=== PATIENT | female | born 1935 | race Caucasian/White ===

== ENCOUNTER 2025-01-28 19:10 | Inpatient (IN) | payer MEDICARE, OTHER ==
[~2025-01-28] VITALS: Ht 160 cm; Wt 59.9 kg
[2025-01-28 20:13] LABS: BASOPHILS # (AUTO) 0.1 K/UL (0.0-0.2); BASOPHILS % (AUTO) 0.7 % (0.0-2.0); EOSINOPHILS # (AUTO) 0.1 K/uL (0.0-0.7); EOSINOPHILS % (AUTO) 0.7 % (0.0-7.0); HEMATOCRIT 33.2 % (31.2-41.9); HEMOGLOBIN 11.5 g/dL (10.9-14.3); LYMPHOCYTES # (AUTO) 2.6 K/uL (0.8-4.8); LYMPHOCYTES % (AUTO) 20.3 % (20.5-51.5); MEAN CORPUSCULAR HEMOGLOBIN 31.7 uug (24.7-32.8); MEAN CORPUSCULAR HGB CONC 35 g/dL (32.3-35.6); MEAN CORPUSCULAR VOLUME 91.4 fL (75.5-95.3); MONOCYTES # (AUTO) 1.1 K/uL (0.1-1.30); NEUTROPHILS # (AUTO) 8.8 K/uL (1.8-8.9); NEUTROPHILS % (AUTO) 69.3 % (38.5-71.5); PLATELET COUNT (AUTO) 275 K/uL (179-408); RED BLOOD CELL COUNT(AUTO) 3.63 MIL/uL (3.63-4.92); RED CELL DISTRIBUTION WIDTH 14.2 % (12.3-17.7); WHITE BLOOD COUNT (AUTO) 12.7 K/uL (3.8-11.8)
[2025-01-28 20:14] LABS: *BILIRUBIN,URIN NEGATIVE (NEGATIVE); *CLARITY,URINE CLOUDY (CLEAR); *COLOR,URINE YELLOW (YELLOW); *KETONES,URINE NEGATIVE (NEGATIVE); *PROTEIN,URINE 2+ (NEGATIVE); *UROBILINOGEN,URINE 0.2 E.U./dl (NORMAL); LEUKOCYTE ESTERASE ,URINE 1+ (NEGATIVE); NITRITE, URINE NEGATIVE (NEGATIVE); PH,URINE 7.5 (5.0-8.0); UGLUCOSE NEGATIVE (NEGATIVE)
[2025-01-28 20:15] LABS: *BLOOD, URINE TRACE (NEGATIVE)
[2025-01-28 20:15] LABS: DIFFERENTIAL COMMENT 1
[2025-01-28 20:20] LABS: CALCIUM 8.9 mg/dL (8.5-10.1); CARBON DIOXIDE 27 mmol/L (21-32); CHLORIDE 101 mmol/L (98-107); CREATININE 0.6 mg/dL (0.6-1.3); GLUCOSE 121 mg/dL (74-106); POTASSIUM 3.8 mmol/L (3.5-5.1); SODIUM SERUM 138 mmol/L (136-145); UREA NITROGEN, BLOOD 21 mg/dL (7-18)
[2025-01-28] MEDS ORDERED: TIMO5DRO18 RIGHTEYE (20:20)
[2025-01-28] MEDS ORDERED: ESCI10TA PO (20:20)
[2025-01-28] MEDS ORDERED: BISA10SU61 RC (20:20)
[2025-01-28] MEDS ORDERED: ALEN70TA80 PO (20:20)
[2025-01-28] MEDS ORDERED: ASCO500C18 PO (20:20)
[2025-01-28] MEDS ORDERED: CLOP75TA33 PO (20:20)
[2025-01-28] MEDS ORDERED: IBUP-1953 PO (20:20)
[2025-01-28] MEDS ORDERED: PHEN50TA PO (20:20)
[2025-01-28] MEDS ORDERED: MAGN400O6 PO (20:20)
[2025-01-28] MEDS ORDERED: BRIM5DRO5 OP (20:20)
[2025-01-28] MEDS ORDERED: IBUP-2314 PO (20:20)
[2025-01-28] MEDS ORDERED: LACT10SO58 PO (20:20)
[2025-01-28] MEDS ORDERED: PHEN200C5 PO (20:20)
[2025-01-28] MEDS ORDERED: RIFA550T PO (20:20)
[2025-01-28] MEDS ORDERED: CYCL5TAB PO (20:20)
[2025-01-28] MEDS ORDERED: NA P133E RC (20:20)
[2025-01-28] MEDS ORDERED: CALC500T52 PO (20:20)
[2025-01-28] MEDS ORDERED: LATA7.5D OP (20:20)
[2025-01-28] MEDS ORDERED: DORZ10DR18 OP (20:20)
[2025-01-28] MEDS ORDERED: ACET-73 PO (20:20)
[2025-01-28] MEDS ORDERED: GABA300C PO (20:20)
[2025-01-28] MEDS ORDERED: CHOL10005 PO (20:20)
[2025-01-28] MEDS ORDERED: LEVE500T83 PO ×2 (20:20)
[2025-01-28] MEDS ORDERED: ACET-3117 PO (20:20)
[2025-01-28 20:22] LABS: *AMPHETAMINE, URINE NEGATIVE (NEGATIVE); *BARBITURATE, URINE NEGATIVE (NEGATIVE); *BENZODIAZEPINE, URINE NEGATIVE (NEGATIVE); *CANNABINOID, URINE NEGATIVE (NEGATIVE); *COCCAINE, URINE NEGATIVE (NEGATIVE); *OPIATE, URINE NEGATIVE (NEGATIVE); *PHENCYCLIDINE SCREEN,URINE NEGATIVE (NEGATIVE); FENTANYL, URINE NEGATIVE (NEGATIVE)
[2025-01-28 20:25] LABS: ALANINE AMINOTRANSFERASE 35 U/L (14-59); ALBUMIN 3.4 g/dL (3.4-5.0); ALKALINE PHOSPHATASE 118 U/L (50-136); ASPARTATE AMINOTRANSFERASE 31 U/L (15-37); BILIRUBIN,DIRECT 0.1 mg/dL (0.0-0.2); BILIRUBIN,TOTAL 0.3 mg/dL (0.2-1.0); ETHANOL < 3 MG/DL (0-10); TOTAL PROTEIN, SERUM 7.4 g/dL (6.4-8.2)
[2025-01-28 20:33] LABS: BACTERIA,URINE MANY /HPF (NONE SEEN); MUCUS,URINE MANY /LPF (0-FEW); RBC,URINE 0-3 /HPF (0-3); SQUAMOUS EPITHELIAL CELL,UR MODERATE /HPF (NONE SEEN); TRIPLE PHOSPHATE CRYSTAL,UR MANY /HPF (NONE SEEN)
[2025-01-28] MEDS: NITROFURANTOIN/NITROFURAN MAC 100 MG CAPSULE PO ONE (21:47)
[2025-01-28] MEDS: ACETAMINOPHEN 500 MG TABLET PO ONE (21:47)
[2025-01-28] MEDS: LORAZEPAM 0.5 MG TABLET PO ONE (21:47)
[2025-01-29] MEDS ORDERED: DORZOLAMIDE HCL OP SCH (09:00)
[2025-01-29] MEDS: CLOPIDOGREL 75 MG TABLET PO SCH (10:00)
[2025-01-29] MEDS: levETIRAcetam 250 MG TABLET PO SCH (10:00)
[2025-01-29] MEDS: CALCIUM CARBONATE 500 MG TABLET PO SCH (10:00)
[2025-01-29] MEDS: NITROFURANTOIN/NITROFURAN MAC 100 MG CAPSULE PO SCH (10:00)
[2025-01-29] MEDS: RIFAXIMIN 550 MG TABLET PO SCH (10:00)
[2025-01-29] MEDS: GABAPENTIN 300 MG CAPSULE PO SCH (10:00)
[2025-01-29] MEDS: CHOLECALCIFEROL 1,000 UNIT TABLET PO SCH (10:00)
[2025-01-29] MEDS: ASCORBIC ACID 500 MG TABLET PO SCH (10:00)
[2025-01-29] MEDS: LACTULOSE 20 G/30 ML LIQUID UDC PO SCH (10:30)
[2025-01-29] MEDS: TIMOLOL MALEATE 0.5% OPHT DROP 5 ML BOTTLE RIGHTEYE SCH (10:51)
[2025-01-29] MEDS ORDERED: CLOPIDOGREL 75 MG TABLET ONE (10:58)
[2025-01-29] MEDS ORDERED: levETIRAcetam 250 MG TABLET ONE (10:58)
[2025-01-29] MEDS ORDERED: NITROFURANTOIN/NITROFURAN MAC 100 MG CAPSULE PO ONE (10:58)
[2025-01-29] MEDS ORDERED: GABAPENTIN 300 MG CAPSULE ONE (10:58)
[2025-01-29] MEDS ORDERED: ASCORBIC ACID 500 MG TABLET ONE (10:59)
[2025-01-29] MEDS ORDERED: CHOLECALCIFEROL 1,000 UNIT TABLET ONE (10:59)
[2025-01-29] MEDS ORDERED: PHEN100C4 PO (11:02)
[2025-01-29] MEDS: BRIMONIDINE 0.2% OPHT DROP 10 ML BOTTLE RIGHTEYE SCH (11:17)
[2025-01-29] MEDS: DORZOLAMIDE 2% OPHT DROP 10 ML BOTTLE RIGHTEYE SCH (11:17)
[2025-01-29] MEDS ORDERED: LACTULOSE 20 G/30 ML LIQUID UDC ONE ×2 (11:21→11:22)
[2025-01-29] MEDS ORDERED: RIFAXIMIN 550 MG TABLET ONE (11:22)
[2025-01-29 12:00] VITALS: BP 155/77; TEMP 98; O2SAT 98
[2025-01-29 15:01] VITALS: BP 147/55; TEMP 98; O2SAT 98
[2025-01-29] MEDS ORDERED: ZOLPIDEM 5 MG TABLET PO PRN (15:45)
[2025-01-29] MEDS ORDERED: MAGNESIUM HYDROXIDE 30 ML LIQUID UDC PO PRN (15:45)
[2025-01-29] MEDS ORDERED: LORAZEPAM 1 MG TABLET PO PRN (15:45)
[2025-01-29] MEDS ORDERED: MAG HYDROX/AL HYDROX/SIMETH 30 ML LIQUID UDC PO PRN (15:45)
[2025-01-29] MEDS: BLOOD SUGAR DIAGNOSTIC 1 EACH STRIP VI ONE (15:53)
[2025-01-29] MEDS: levETIRAcetam 500 MG TABLET PO SCH (17:11)
[2025-01-29] MEDS ORDERED: levETIRAcetam 250 MG TABLET PO SCH (18:00)
[2025-01-29] MEDS: LATANOPROST OPHT DROP 2.5 ML BOTTLE OP SCH (21:01)
[2025-01-29 21:38] VITALS: BP 142/74; TEMP 98; O2SAT 97
[2025-01-30 07:39] LABS: BASOPHILS # (AUTO) 0.1 K/UL (0.0-0.2); BASOPHILS % (AUTO) 0.6 % (0.0-2.0); EOSINOPHILS # (AUTO) 0.4 K/uL (0.0-0.7); EOSINOPHILS % (AUTO) 2.6 % (0.0-7.0); HEMOGLOBIN 12.9 g/dL (10.9-14.3); LYMPHOCYTES # (AUTO) 1.9 K/uL (0.8-4.8); MEAN CORPUSCULAR HEMOGLOBIN 30.5 uug (24.7-32.8); MEAN CORPUSCULAR HGB CONC 33 g/dL (32.3-35.6); MEAN CORPUSCULAR VOLUME 91.7 fL (75.5-95.3); MONOCYTES # (AUTO) 1.5 K/uL (0.1-1.30); MONOCYTES % (AUTO) 10.3 % (0.0-11.0); NEUTROPHILS # (AUTO) 10.6 K/uL (1.8-8.9); NEUTROPHILS % (AUTO) 73.5 % (38.5-71.5); PLATELET COUNT (AUTO) 316 K/uL (179-408); RED BLOOD CELL COUNT(AUTO) 4.25 MIL/uL (3.63-4.92); RED CELL DISTRIBUTION WIDTH 14.1 % (12.3-17.7); WHITE BLOOD COUNT (AUTO) 14.5 K/uL (3.8-11.8)
[2025-01-30 07:43] LABS: DIFFERENTIAL COMMENT 1
[2025-01-30 07:54] VITALS: BP 116/64; TEMP 98; O2SAT 96
[2025-01-30 07:56] LABS: ALANINE AMINOTRANSFERASE 46 U/L (14-59); ALBUMIN 3.2 g/dL (3.4-5.0); ALKALINE PHOSPHATASE 114 U/L (50-136); ASPARTATE AMINOTRANSFERASE 35 U/L (15-37); BILIRUBIN,TOTAL 0.4 mg/dL (0.2-1.0); CALCIUM 8.7 mg/dL (8.5-10.1); CARBON DIOXIDE 28 mmol/L (21-32); CHLORIDE 103 mmol/L (98-107); CREATININE 0.4 mg/dL (0.6-1.3); GLUCOSE 111 mg/dL (74-106); POTASSIUM 3.7 mmol/L (3.5-5.1); SODIUM SERUM 139 mmol/L (136-145); TOTAL PROTEIN, SERUM 7.2 g/dL (6.4-8.2); UREA NITROGEN, BLOOD 24 mg/dL (7-18)
[2025-01-30] MEDS: ACETAMINOPHEN 325 MG TABLET PO PRN (09:25)
[2025-01-30] MEDS ORDERED: LORAZEPAM 1 MG TABLET PO PRN (10:30)
[2025-01-30] MEDS ORDERED: ZOLPIDEM 5 MG TABLET PO PRN (10:30)
[2025-01-30] MEDS: ENSURE ENLIVE (VAN) 240 ML LIQUID PO SCH (13:39)
[2025-01-30 15:09] VITALS: BP_SYST 116; BP_SYST 123; BP_DIAS 64; BP_DIAS 72; TEMP 98; O2SAT 96; O2SAT 98
[2025-01-30 19:49] VITALS: BP 139/50; TEMP 98; O2SAT 96
[2025-01-30] MEDS: QUETIAPINE FUMARATE 25 MG TABLET PO SCH (21:05)
[2025-01-31 08:04] VITALS: BP 136/59; TEMP 98.1; O2SAT 99
[2025-01-31] MEDS: VENLAFAXINE XR 37.5 MG CAP.SR.24H PO SCH (09:29)
[2025-01-31 16:04] VITALS: BP 142/78; TEMP 98.2; O2SAT 100
[2025-01-31 21:20] VITALS: BP 125/47; TEMP 98.8; O2SAT 95
[2025-02-01 08:26] VITALS: BP 112/51; TEMP 97.6; O2SAT 96
[2025-02-01 16:16] VITALS: BP 94/55; TEMP 98; O2SAT 96
[2025-02-01 20:00] VITALS: BP 100/60; TEMP 97.8; O2SAT 94
[2025-02-02 08:20] VITALS: BP 129/48; TEMP 98.8; O2SAT 96
[2025-02-02 15:18] VITALS: BP 124/50; TEMP 98.8; O2SAT 96
[2025-02-02 20:02] VITALS: BP 144/55; TEMP 98.6; O2SAT 96
[2025-02-03 08:00] VITALS: BP 133/61; TEMP 97.8; O2SAT 96
[2025-02-03 16:00] VITALS: BP 126/78; TEMP 98.7; O2SAT 98
[2025-02-03 20:00] VITALS: BP 142/44; TEMP 98.4; O2SAT 95
[2025-02-03] MEDS: QUETIAPINE FUMARATE 25 MG TABLET PO SCH (20:58)
[2025-02-04 08:04] VITALS: BP 116/45; TEMP 98.3; O2SAT 96
[2025-02-04] MEDS: REMEDY ESSENTIAL ZINC PASTE 113 GM TOP SCH (09:34)
[2025-02-04 16:14] VITALS: BP 131/71; TEMP 98; O2SAT 99
[2025-02-04 19:48] VITALS: BP 146/69; TEMP 98.1; O2SAT 98
[2025-02-04] MEDS: MIRTAZAPINE 15 MG TABLET PO SCH (20:49)
[2025-02-05 07:57] VITALS: BP 115/76; TEMP 98.2; O2SAT 98
[2025-02-05 15:18] VITALS: BP 144/74; TEMP 98; O2SAT 96
[2025-02-05 20:00] VITALS: BP 131/69; TEMP 98.4; O2SAT 95
[2025-02-06 07:59] VITALS: BP 112/55; TEMP 97.8; O2SAT 98
[2025-02-06 15:19] VITALS: BP 131/69; TEMP 98; O2SAT 96
[2025-02-06 19:59] VITALS: BP 116/55; TEMP 98.1; O2SAT 97
[2025-02-07 08:08] VITALS: BP 143/55; TEMP 98; O2SAT 96
[2025-02-07 08:51] VITALS: BP 143/55; TEMP 98.1; O2SAT 50
[2025-02-07 16:09] VITALS: BP 140/71; TEMP 98.3; O2SAT 99
[2025-02-07 20:00] VITALS: BP 142/66; TEMP 98.1; O2SAT 96
[2025-02-08 08:10] VITALS: BP 154/51; TEMP 97.9; O2SAT 99
== END 2025-02-08 13:20 | DRG 885 ==
LOC: ER 19:18 → TRANSITION 01-29 09:00 → GPS 01-29 12:20
PROVIDERS: ADMIT Psychiatry & Neurology Psychiatry; ATTEND Nurse Practitioner Acute Care
DX: F33.3 Major depressive disorder, recurrent, severe with psychotic symptoms (principal); L40.50 Arthropathic psoriasis, unspecified; N39.0 Urinary tract infection, site not specified; F02.83 Dementia in other diseases classified elsewhere, unspecified severity, with mood disturbance; F02.84 Dementia in other diseases classified elsewhere, unspecified severity, with anxiety; G20.A1 Parkinson's disease without dyskinesia, without mention of fluctuations; Z91.148 Patient's other noncompliance with medication regimen for other reason; H40.9 Unspecified glaucoma; M81.0 Age-related osteoporosis without current pathological fracture; G40.909 Epilepsy, unspecified, not intractable, without status epilepticus; R26.9 Unspecified abnormalities of gait and mobility; K74.60 Unspecified cirrhosis of liver; Z79.02 Long term (current) use of antithrombotics/antiplatelets; Z79.899 Other long term (current) drug therapy; Z87.440 Personal history of urinary (tract) infections; R62.7 Adult failure to thrive; M10.9 Gout, unspecified
CPT/HCPCS: 36415; 84443; 85025; 87086; A6209; A9150; C1758; G0480